=== PATIENT | male | born 1985 | race Caucasian/White ===

== ENCOUNTER 2018-02-08 14:45 | Inpatient (IN) | payer OTHER ==
[2018-02-08 15:09] VITALS: BMI 24.6
--- NOTE | 2018-02-08 15:32 | HP ---
COWS - Scale Resting Pulse: 0= [place] 80 or Below Sweatin= Chills/Flushing Restless Observation: 1= Difficult to Sit Still Pupil Size: 1= Pupils >than Normal Bone or Joint Aches: 2= Severe Diffuse Aches Runny Nose/ Eye Tearin= Runny Nose/Eyes GI Upset > 30mins: 2= Nausea/Diarrhea Tremor Observation: 2= Slight Tremor Visible Yawning Observation: 1= 1-2x During Session Anxiety or Irritability: 2=Irritable/Anxious Goose Flesh Skin: 0=Smooth Skin COWS Score: 14 CIWA Score - Admission Criteria [facility] Guidelines: Admission for Medically Managed Detox: Requires at least one of the followin. CIWA greater than 12 2. Seizures within the past 24 hours 3. Delirium tremens within the past 24 hours 4. Hallucinations within the past 24 hours 5. Acute intervention needed for co occurring medical disorder 6. Acute intervention needed for co occurring psychiatric disorder 7. Severe withdrawal that cannot be handled at a lower level of care (continued vomiting, continued diarrhea, abnormal vital signs) requiring intravenous medication and/or fluids 8. Admission ROS S - HPI Chief Complaint: i need help to stop using heroin,cocIANE,MARIJUANA DEPENDENCE AND ALCOHOL abused , last detox [facility] in 10/03 weight loss depression nicotine dependence hepatitis c no treatment longest period of sobriety 1 year Allergies/Adverse Reactions: Allergies Allergy/AdvReac Type Severity Reaction Status Date / Time No Known Allergies Allergy Verified 02/08/18 15:24 History of Present Illness: this 32 years old [place] with heroin,cocaine,marijuana dependence,alcohol abused, seeking detox as mentioned - Ebola screening Have you traveled outside of the country in the last 21 days: No Have you had contact with anyone from an Ebola affected area: No Have you been sick,other than usual withdrawal symptoms: No Do you have a fever: No - Review of Systems Constitutional: Chills, Loss of Appetite, Malaise, Night Sweats, Changes in sleep, Weakness, Unintentional Wgt. Loss EENT: reports: Tearing, Nose Congestion Respiratory: reports: No Symptoms reported Cardiac: reports: No Symptoms Reported GI: reports: Diarrhea, Nausea, Vomiting, Abdominal cramping : reports: No Symptoms Reported Musculoskeletal: reports: Back Pain, Joint Pain, Muscle Pain, Joint Stiffness Integumentary: reports: Dryness Neuro: reports: Headache, Tremors Endocrine: reports: No Symptoms Reported Hematology: reports: No Symptoms Reported Psychiatric: reports: No Sypmtoms Reported, Judgement Intact, Mood/Affect Appropiate, Orientated x3, Depressed Patient History - Patient Medical History Hx Anemia: No Hx Asthma: No Hx Chronic Obstructive Pulmonary Disease (COPD): No Hx Cancer: No Hx Cardiac Disorders: No Hx Congestive Heart Failure: No Hx Hypertension: No Hx Hypercholesterolemia: No Hx Pacemaker: No HX Cerebrovascular Accident: No Hx Seizures: No Hx Dementia: No Hx Diabetes: No Hx Gastrointestinal Disorders: No Hx Liver Disease: No Hx Genitourinary Disorders: No Hx Sexually Transmitted Disorders: No Hx Renal Disease (ESRD): No Hx Thyroid Disease: No Hx Human Immunodeficiency Virus (HIV): No (10/03 negative) Hx Hepatitis C: Yes (not treated) Hx Depression: Yes Hx Suicide Attempt: Yes (cutter at age 12) Hx Bipolar Disorder: No Hx Schizophrenia: No Other Medical History: no suicidal,no homicidal - Patient Surgical History Past Surgical History: No - PPD History Previous Implant?: Yes Documented Results: Negative w/o proof Implanted On Prior [facility] Admission?: No PPD to be Administered?: Yes - Smoking Cessation Smoking history: Current every day smoker Have you smoked in the past 12 months: Yes Aproximately how many cigarettes per day: 20 Cigars Per Day: 0 Hx Chewing Tobacco Use: No Initiated information on smoking cessation: Yes 'Breaking Loose' booklet given: 02/08/18 - Substance & Tx. History Hx Alcohol Use: Yes Hx Substance Use: Yes Substance Use Type: Alcohol, Cocaine, Heroin, Marijuana Hx Substance Use Treatment: Yes ([facility] in 10/03) - Substances Abused Heroin Route: Injection Frequency: Daily Amount used: 10 BAGS Age of first use: 11 Date of Last Use: 02/08/18 Alcohol Route: Oral Frequency: 1-2 times per week Amount used: 7-8 BEERS Age of first use: 10 Date of Last Use: 02/07/18 Cocaine Route: Injection Frequency: Daily Amount used: 5 BAGS Age of first use: 11 Date of Last Use: 02/07/18 Marijuana/Hashish Route: Smoking Frequency: Daily Amount used: 1 BLUNT Age of first use: 9 Date of Last Use: 11/22/18 Family Disease History - Family Disease History Family Disease History: Other: Father (dsa,alcohol,) Admission Physical Exam [facility] - Vital Signs Vital Signs: Vital Signs - 24 hr 02/08/18 15:08 Temperature 96.4 F L Pulse Rate 68 Respiratory 17 Rate Blood Pressure 110/59 L - Physical General Appearance: Yes: Moderate Distress, Tremorous, Irritable, Sweating, Anxious HEENTM: Yes: Normal ENT Inspection, ROSALIO, Pharynx Normal Respiratory: Yes: Lungs Clear, Normal Breath Sounds, No Respiratory Distress Neck: Yes: Within Normal Limits, Supple, Trachea in good position Breast: Yes: Within Normal Limits Cardiology: Yes: Within Normal Limits, Regular Rhythm, Regular Rate, S1, S2 Abdominal: Yes: Within Normal Limits, Normal Bowel Sounds, Non Tender, Flat, Soft Genitourinary: Yes: Within Normal Limits Back: Yes: Within Normal Limits, Normal Inspection, Muscle Spasm Musculoskeletal: Yes: full range of Motion, Back pain, Muscle Pain Extremities: Yes: Within Normal Limits, Normal Range of Motion, Tremors Neurological: Yes: parking attendant II-XII NML intact, Alert, Motor Strength 5/5 Integumentary: Yes: Dry, Track Hughes Lymphatic: Yes: Within Normal Limits - Diagnostic (1) Opioid dependence with withdrawal Current Visit: Yes Status: Acute (2) Cocaine dependence Current Visit: Yes Status: Acute (3) Cannabis dependence Current Visit: Yes Status: Acute (4) IV drug user Current Visit: Yes Status: Acute (5) Weight loss Current Visit: Yes Status: Acute (6) Dehydration Current Visit: Yes Status: Acute (7) Nicotine dependence Current Visit: Yes Status: Acute (8) Depression Current Visit: Yes Status: Acute Cleared for Admission [facility] - Detox or Rehab [facility] Level of Care: Medically Managed Detox Regimen/Protocol: Methadone [facility] Breath Alcohol Content Breath Alcohol Content: 0 Urine Drug Screen - Results Drug Screen Negative: No Urine Drug Screen Results: THC-Marijuana, PEARL-Cocaine, OPI-Opiates
[2018-02-08] MEDS ORDERED: hydrOXYzine PAMOATE 25 MG CAPSULE (FP) PO PRN (15:45)
[2018-02-08] MEDS ORDERED: LOPERAMIDE HCL 2 MG CAPSULE PO PRN (15:45)
[2018-02-08] MEDS ORDERED: guaiFENesin/D-METHORPHAN HB 10 ML UNIT-DOSE CUPS PO PRN (15:45)
[2018-02-08] MEDS ORDERED: MAGNESIUM CITRATE 300 ML BOTTLE PO PRN (15:45)
[2018-02-08] MEDS ORDERED: IBUPROFEN 400 MG TABLET (FP) PO PRN (15:45)
[2018-02-08] MEDS ORDERED: MAGNESIUM HYDROX 2400MG/30ML ORAL SUSPENSION 30 ML CUP PO PRN (15:45)
[2018-02-08] MEDS ORDERED: ACETAMINOPHEN 325 MG TABLET (FP) PO PRN (15:45)
[2018-02-08] MEDS ORDERED: NICOTINE POLACRILEX 2 MG GUM BC PRN (15:45)
[2018-02-08] MEDS ORDERED: P-EPHED 60MG/TRIPROLIDI 2.5MG TABLET PO PRN (15:45)
[2018-02-08] MEDS ORDERED: MENTHOL/PHENOL 1 EACH UD MM PRN (15:45)
[2018-02-08] MEDS ORDERED: MAG HYDROX/AL HYDROX/SIMETH 30 ML UNIT-DOSE CUP PO PRN (15:45)
[2018-02-08] MEDS ORDERED: METHADONE HCL 10 MG TABLET (FOR DETOX USE ONLY) PO ONE ×2 (16:00→23:00)
[2018-02-08] MEDS: CYCLOBENZAPRINE HCL 10 MG TABLET (FP) PO PRN (17:23)
[2018-02-08] MEDS: diazePAM 5 MG TABLET PO PRN ×2 (17:23→22:35)
--- NOTE | 2018-02-08 19:40 | CONSULT ---
[facility] Psychiatric Consult - Data Date of interview: 02/08/18 Admission source: [facility] Identifying data: First admission to [facility] for this 32 y/o male seeking detoxification treatment on for alcohol, heroin, cocaine, cannabis dependence. Patient is single, a father of two, undomiciled,unemployed and deprived of income. Substance Abuse History: Confirmed by the patient. Details in current [facility] report : Smoking history: Current every day smoker. Have you smoked in the past 12 months: Yes. Aproximately how many cigarettes per day: 20. Cigars Per Day: 0. Hx Chewing Tobacco Use: No. Initiated information on smoking cessation : Yes. 'Breaking Loose' booklet given: 02/08/18. - Substance & Tx. History. Hx Alcohol Use: Yes. Hx Substance Use: Yes. Substance Use Type: Alcohol, Cocaine, Heroin, Marijuana. Hx Substance Use Treatment: Yes ([facility] in 10/03) Medical History: Hepatitis C. Psychiatric History: Patient denies. Physical/Sexual Abuse/Trauma History: Patient denies. Additional Comment: Urine Drug Screen Results: THC-Marijuana, PEARL-Cocaine, OPI- Opiates. Noted. Mental Status Exam - Mental Status Exam Alert and Oriented to: Time, Place, Person Cognitive Function: Good Patient Appearance: Well Groomed Mood: Nervous, Withdrawn Affect: Mood Congruent Patient Behavior: Fatigued, Appropriate, Cooperative Speech Pattern: Clear (more fluent in [place]er) Voice Loudness: Moderately Soft/Quiet Thought Process: Goal Oriented Thought Disorder: Not Present Hallucinations: Denies Suicidal Ideation: Denies Homicidal Ideation: Denies Insight/Judgement: Poor Sleep: Well Appetite: Good Gait/Station: Other (not observed ; patient in bed for entire interview) Psychiatric Findings - Problem List ([place] 1, 2,3) (1) Opioid dependence with withdrawal Current Visit: Yes Status: Acute (2) Cannabis dependence Current Visit: Yes Status: Acute (3) Cocaine dependence Current Visit: Yes Status: Acute (4) Nicotine dependence Current Visit: Yes Status: Acute - Initial Treatment Plan Initial Treatment Plan: Psychoeducation. Sleep hygiene. NA/AA meetings. Detoxification. Referral to substance abuse program at discharge (inpatient rehabilitation if requested). Observation.
[2018-02-08] MEDS ORDERED: MELATONIN 5 MG TABLETS PO PRN (22:00)
[2018-02-08] MEDS: cloNIDine HCL 0.1 MG TABLET PO SCH (22:35)
[2018-02-08] MEDS: THIAMINE HCL 100 MG TABLET (FP) PO SCH (22:35)
[2018-02-08 23:34] LABS: URINE APPEARANCE TURBID; URINE BILIRUBIN NEGATIVE (<2.0 mg/dL); URINE COLOR YELLOW; URINE GLUCOSE (UA) NEGATIVE (NEGATIVE); URINE KETONE NEGATIVE (NEGATIVE); URINE LEUK ESTERASE NEGATIVE (NEGATIVE); URINE NITRITE NEGATIVE (NEGATIVE); URINE PROTEIN NEGATIVE (NEGATIVE)
[2018-02-09] MEDS ORDERED: METHADONE HCL 10 MG TABLET (FOR DETOX USE ONLY) PO ONE (10:00)
[2018-02-09] MEDS: PRENATAL VITAMINS W/ FOLIC ACID TABLET (FP) PO SCH (10:07)
[2018-02-09] MEDS: diazePAM 5 MG TABLET PO PRN ×2 (10:08→22:08)
[2018-02-09] MEDS: cloNIDine HCL 0.1 MG TABLET PO SCH ×2 (10:08→22:09)
[2018-02-09] MEDS ORDERED: FLU VACCINE QUAD 60 MCG/0.5 ML (MDV 18-19) IM ONE (12:00)
[2018-02-09 12:03] LABS: HEMATOCRIT 43.6 % (35.4-49); HEMOGLOBIN 14.2 GM/dL (11.7-16.9); MCH 29.8 pg (25.7-33.7); MCHC 32.6 g/dl (32.0-35.9); MEAN CELL VOLUME 91.3 fl (80-96); MEAN PLT VOLUME 9.9 fl (7.5-11.1); PLATELET COUNT 165 K/MM3 (134-434); RBC 4.77 M/mm3 (4.00-5.60); RDW 12.8 % (11.9-15.9); WHITE BLOOD COUNT 6.1 K/mm3 (4.0-10.0)
[2018-02-09 12:17] LABS: ALBUMIN 3.3 g/dl (3.4-5.0); ALK PHOS 52 U/L (45-117); ANION GAP 7 MMOL/L (8-16); BILIRUBIN,TOTAL 0.3 mg/dL (0.2-1); BLOOD UREA NITROGEN 17 mg/dL (7-18); CALCIUM 8.7 mg/dL (8.5-10.1); CHLORIDE 106 mmol/L (98-107); CO2 28 mmol/L (21-32); CREATININE 0.8 mg/dL (0.55-1.3); GLUCOSE,RANDOM 95 mg/dL (74-106); POTASSIUM 4.1 mmol/L (3.5-5.1); SGOT/AST 23 U/L (15-37); SGPT/ALT 31 U/L (13-61); SODIUM 140 mmol/L (136-145); TOT PROT 7.2 g/dl (6.4-8.2)
--- NOTE | 2018-02-09 16:35 | PN ---
BHS COWS - Scale Resting Pulse: 0= [place] 80 or Below Sweatin=Flushed/Facial Moisture Restless Observation: 0= Sits Still Pupil Size: 0= Normal to Room Light Bone or Joint Aches: 1= Mild Discomfort Runny Nose/ Eye Tearin= Nasal Congestion GI Upset > 30mins: 0= None Tremor Observation of Outstretched Hands: 1= Tremor [place], Not Seen Yawning Observation: 1= 1-2x During Session Anxiety or Irritability: 1=Feels Anxious/Irritable Goose Flesh Skin: 0=Smooth Skin COWS Score: 7 BHS Progress Note (SOAP) Subjective: sweats tremors Objective: 02/09/18 16:34 Vital Signs Temperature 96.1 F L 02/09/18 14:03 Pulse Rate 80 02/09/18 14:03 Respiratory Rate 18 02/09/18 14:03 Blood Pressure 107/68 02/09/18 14:03 O2 Sat by Pulse Oximetry (%) Laboratory Last Values WBC 6.1 K/mm3 (4.0-10.0) 02/09/18 08:00 RBC 4.77 M/mm3 (4.00-5.60) 02/09/18 08:00 Hgb 14.2 GM/dL (11.7-16.9) 02/09/18 08:00 Hct 43.6 % (35.4-49) 02/09/18 08:00 MCV 91.3 fl (80-96) 02/09/18 08:00 MCH 29.8 pg (25.7-33.7) 02/09/18 08:00 MCHC 32.6 g/dl (32.0-35.9) 02/09/18 08:00 RDW 12.8 % (11.9-15.9) 02/09/18 08:00 Plt Count 165 K/MM3 (134-434) 02/09/18 08:00 MPV 9.9 fl (7.5-11.1) 02/09/18 08:00 Sodium 140 mmol/L (136-145) 02/09/18 07:50 Potassium 4.1 mmol/L (3.5-5.1) 02/09/18 07:50 Chloride 106 mmol/L (98-107) 02/09/18 07:50 Carbon Dioxide 28 mmol/L (21-32) 02/09/18 07:50 Anion Gap 7 MMOL/L (8-16) L 02/09/18 07:50 BUN 17 mg/dL (7-18) 02/09/18 07:50 Creatinine 0.8 mg/dL (0.55-1.3) 02/09/18 07:50 Creat Clearance w eGFR > 60 (>60) 02/09/18 07:50 Random Glucose 95 mg/dL (74-106) 02/09/18 07:50 Calcium 8.7 mg/dL (8.5-10.1) 02/09/18 07:50 Total Bilirubin 0.3 mg/dL (0.2-1) 02/09/18 07:50 AST 23 U/L (15-37) 02/09/18 07:50 ALT 31 U/L (13-61) 02/09/18 07:50 Alkaline Phosphatase 52 U/L (45-117) 02/09/18 07:50 Total Protein 7.2 g/dl (6.4-8.2) 02/09/18 07:50 Albumin 3.3 g/dl (3.4-5.0) L 02/09/18 07:50 Urine Color Yellow 02/08/18 22:00 Urine Appearance Turbid 02/08/18 22:00 Urine pH 5.0 (5.0-8.0) 02/08/18 22:00 Ur Specific [place] 1.031 (1.010-1.035) 02/08/18 22:00 Urine Protein Negative (NEGATIVE) 02/08/18 22:00 Urine Glucose (UA) Negative (NEGATIVE) 02/08/18 22:00 Urine Ketones Negative (NEGATIVE) 02/08/18 22:00 Urine Blood Negative (NEGATIVE) 02/08/18 22:00 Urine Nitrite Negative (NEGATIVE) 02/08/18 22:00 Urine Bilirubin Negative (<2.0 mg/dL) 02/08/18 22:00 Urine Urobilinogen 2.0 mg/dL (0.2-1.0) 02/08/18 22:00 Ur Leukocyte Esterase Negative (NEGATIVE) 02/08/18 22:00 RPR Titer Nonreactive (NONREACTIVE) 02/09/18 07:50 labs noted urine result abnormal Assessment: 02/09/18 16:35 withdrawal sx Abnormal urinalysis Plan: continue detox increase hydration
[2018-02-09] MEDS: THIAMINE HCL 100 MG TABLET (FP) PO SCH (22:08)
[2018-02-09] MEDS: CYCLOBENZAPRINE HCL 10 MG TABLET (FP) PO PRN (22:09)
[2018-02-10] MEDS: diazePAM 5 MG TABLET PO PRN ×2 (06:13→22:13)
[2018-02-10] MEDS: CYCLOBENZAPRINE HCL 10 MG TABLET (FP) PO PRN ×2 (06:13→22:13)
[2018-02-10] MEDS ORDERED: METHADONE HCL 5 MG TABLET (FOR DETOX USE ONLY) PO ONE (10:00)
[2018-02-10] MEDS: PRENATAL VITAMINS W/ FOLIC ACID TABLET (FP) PO SCH (10:10)
[2018-02-10] MEDS: cloNIDine HCL 0.1 MG TABLET PO SCH (10:10)
[2018-02-10] MEDS ORDERED: cloNIDine HCL 0.1 MG TABLET PO PRN (15:56)
--- NOTE | 2018-02-10 15:58 | PN ---
S COWS - Scale Resting Pulse: 0= [place] 80 or Below Sweatin= Chills/Flushing Restless Observation: 3= Extraneous Movement Pupil Size: 0= Normal to Room Light Bone or Joint Aches: 2= Severe Diffuse Aches Runny Nose/ Eye Tearin= Runny Nose/Eyes GI Upset > 30mins: 3= Vomiting/Diarrhea Tremor Observation of Outstretched Hands: 2= Slight Tremor Visible Yawning Observation: 1= 1-2x During Session Anxiety or Irritability: 2=Irritable/Anxious Goose Flesh Skin: 0=Smooth Skin COWS Score: 16 S Progress Note (SOAP) Subjective: Sweating, interrupted sleep, anxious Objective: 02/10/18 15:53 Last Vital Signs Temp Pulse Resp BP Pulse Ox 98.0 F 74 18 85/55 L 02/10/18 13:44 02/10/18 13:44 02/10/18 13:44 02/10/18 13:44 Hypotension noted Laboratory Tests 02/08/18 02/09/18 02/09/18 22:00 07:50 07:50 WBC RBC Hgb Hct MCV MCH MCHC RDW Plt Count MPV Sodium 140 Potassium 4.1 Chloride 106 Carbon Dioxide 28 Anion Gap 7 L BUN 17 Creatinine 0.8 Creat Clearance w eGFR > 60 Random Glucose 95 Calcium 8.7 Total Bilirubin 0.3 AST 23 ALT 31 Alkaline Phosphatase 52 Total Protein 7.2 Albumin 3.3 L Urine Color Yellow Urine Appearance Turbid Urine pH 5.0 Ur Specific [place] 1.031 Urine Protein Negative Urine Glucose (UA) Negative Urine Ketones Negative Urine Blood Negative Urine Nitrite Negative Urine Bilirubin Negative Urine Urobilinogen 2.0 Ur Leukocyte Esterase Negative RPR Titer Nonreactive 02/09/18 08:00 WBC 6.1 RBC 4.77 Hgb 14.2 Hct 43.6 MCV 91.3 MCH 29.8 MCHC 32.6 RDW 12.8 Plt Count 165 MPV 9.9 Sodium Potassium Chloride Carbon Dioxide Anion Gap BUN Creatinine Creat Clearance w eGFR Random Glucose Calcium Total Bilirubin AST ALT Alkaline Phosphatase Total Protein Albumin Urine Color Urine Appearance Urine pH Ur Specific [place] Urine Protein Urine Glucose (UA) Urine Ketones Urine Blood Urine Nitrite Urine Bilirubin Urine Urobilinogen Ur Leukocyte Esterase RPR Titer Labs reviewed Assessment: 02/10/18 15:54 Withdrawal symptoms Hypotension noted Plan: Continue detox Hypotension: could be due to clonidine; asymptomatic, encouraged PO water intake , change clonidine 0.1mg bid to q8hr prn for anxiety (hold if b/p < 110/60), continue to monitor
[2018-02-10] MEDS: THIAMINE HCL 100 MG TABLET (FP) PO SCH (22:11)
[2018-02-11] MEDS ORDERED: METHADONE HCL 5 MG TABLET (FOR DETOX USE ONLY) PO ONE (10:00)
[2018-02-11] MEDS: PRENATAL VITAMINS W/ FOLIC ACID TABLET (FP) PO SCH (10:08)
--- NOTE | 2018-02-11 11:49 | PN ---
BHS Progress Note (SOAP) Subjective: SLEEP DISTURBANCE SWEATS Objective: 02/11/18 11:47 IN BED, A & O X3 VERBALIZES NO COMPLAINTS NO DISTRESS NOTED Vital Signs Temperature 96.3 F L 02/11/18 09:04 Pulse Rate 70 02/11/18 09:04 Respiratory Rate 18 02/11/18 09:04 Blood Pressure 107/73 02/11/18 09:04 O2 Sat by Pulse Oximetry (%) Assessment: 02/11/18 11:48 WITHDRAWAL SX Plan: CONTINUE DETOX
[2018-02-11] MEDS: diazePAM 5 MG TABLET PO PRN (12:37)
[2018-02-11] MEDS: THIAMINE HCL 100 MG TABLET (FP) PO SCH (22:19)
[2018-02-11] MEDS: CYCLOBENZAPRINE HCL 10 MG TABLET (FP) PO PRN (22:19)
[2018-02-12 09:24] VITALS: BP 92/60; PULSE 81; TEMP 97
[2018-02-12] MEDS ORDERED: METHADONE HCL 10 MG TABLET (FOR DETOX USE ONLY) PO ONE (10:00)
[2018-02-12] MEDS: PRENATAL VITAMINS W/ FOLIC ACID TABLET (FP) PO SCH (10:09)
--- NOTE | 2018-02-12 12:15 | DS ---
[facility] Detox Discharge Summary Admission Date: 02/08/18 Discharge Date: 02/12/18 - History Present History: Cannabis Dependence, Cocaine Dependence, Opioid Dependence Additional Comments: Patient decided to leave AMA despite encouragement from staff to complete detox. Patient instructed to call 911 if any withdrawal symptoms or feeling sick and to follow up with his PCP within 3 days. Pertinent Past History: Opioid dependence Cocaine dependence Cannabis dependence Nicotine dependence - Physical Exam Results Vital Signs: Vital Signs Temperature 97.0 F L 02/12/18 09:23 Pulse Rate 81 02/12/18 09:23 Respiratory Rate 18 02/12/18 09:23 Blood Pressure 92/60 02/12/18 09:23 O2 Sat by Pulse Oximetry (%) Pertinent Admission Physical Exam Findings: Withdrawal symptoms Laboratory Tests 02/08/18 02/09/18 02/09/18 22:00 07:50 07:50 WBC RBC Hgb Hct MCV MCH MCHC RDW Plt Count MPV Sodium 140 Potassium 4.1 Chloride 106 Carbon Dioxide 28 Anion Gap 7 L BUN 17 Creatinine 0.8 Creat Clearance w eGFR > 60 Random Glucose 95 Calcium 8.7 Total Bilirubin 0.3 AST 23 ALT 31 Alkaline Phosphatase 52 Total Protein 7.2 Albumin 3.3 L Urine Color Yellow Urine Appearance Turbid Urine pH 5.0 Ur Specific [place] 1.031 Urine Protein Negative Urine Glucose (UA) Negative Urine Ketones Negative Urine Blood Negative Urine Nitrite Negative Urine Bilirubin Negative Urine Urobilinogen 2.0 Ur Leukocyte Esterase Negative RPR Titer Nonreactive 02/09/18 08:00 WBC 6.1 RBC 4.77 Hgb 14.2 Hct 43.6 MCV 91.3 MCH 29.8 MCHC 32.6 RDW 12.8 Plt Count 165 MPV 9.9 Sodium Potassium Chloride Carbon Dioxide Anion Gap BUN Creatinine Creat Clearance w eGFR Random Glucose Calcium Total Bilirubin AST ALT Alkaline Phosphatase Total Protein Albumin Urine Color Urine Appearance Urine pH Ur Specific [place] Urine Protein Urine Glucose (UA) Urine Ketones Urine Blood Urine Nitrite Urine Bilirubin Urine Urobilinogen Ur Leukocyte Esterase RPR Titer Labs reviewed - Medication Discharge Medications: Ambulatory Orders NK [No Known Home Medication] 02/08/18 - Diagnosis (1) Hypotension Status: Acute (2) Opioid dependence with withdrawal Status: Acute (3) Cannabis dependence Status: Chronic (4) Cocaine dependence Status: Chronic (5) Nicotine dependence Status: Chronic - AMA Did Patient Leave Against Medical Advice: Yes (Instructed to call 911 if any withdrawal symptoms or feeling sick)
[2018-02-13] MEDS ORDERED: METHADONE HCL 5 MG TABLET (FOR DETOX USE ONLY) PO ONE (06:00)
== END 2018-02-12 11:10 | disposition left against medical advice (07) | DRG 770 ==
LOC: YASAS 14:45 → Y3N 15:46
PROVIDERS: ADMIT Neuromusculoskeletal Medicine & OMM; ATTEND Neuromusculoskeletal Medicine & OMM
PROC: HZ2ZZZZ Detoxification Services for Substance Abuse Treatment (ICD-10-PCS; principal; 2018-02-08)
DX: F11.23 Opioid dependence with withdrawal (principal); F14.20 Cocaine dependence, uncomplicated; F12.20 Cannabis dependence, uncomplicated; F17.210 Nicotine dependence, cigarettes, uncomplicated; F32.9 Major depressive disorder, single episode, unspecified; I95.9 Hypotension, unspecified; E86.0 Dehydration; R82.90 Unspecified abnormal findings in urine; Z91.5 Personal history of self-harm
CPT/HCPCS: 36415; 80053; 81003; 85027; 86593; 90688; G0008; J0735